=== PATIENT | male | born 1980 | race Two or more races ===

== ENCOUNTER → 2019-02-21 | Outpatient (CLI) | payer OTHER ==
--- NOTE | 2019-02-21 11:33 | PFTRPT ---
Height: 72.00 Inches Weight: 170.00 Lbs BSA: 1.99 Diagnosis: R06.02 DATE OF PROCEDURE: 02/21/2019 ORDERED BY: Mirta Deleon MD Spirometry: Study of excellent technical quality. Forced vital capacity normal. FEV1 in proportion. Obstructive index is, therefore, normal. Flow Volume Loop: Expiratory limb of the flow volume loop is normal. Lung Volumes: Total lung capacity normal. Residual volume is somewhat out of proportion, suggesting air trapping. Diffusing Capacity: Diffusing capacity is normal and remains normal when corrected for alveolar volume. Hemoglobin: No hemoglobin available for correction. Airway Mechanics: Airway resistance and conductance are normal. IMPRESSION: Cannot rule out a degree of air trapping. Please correlate clinically. MTDD
== END ==
LOC: M CARPUL 10:36
PROVIDERS: ATTEND Family Medicine
DX: R06.02 Shortness of breath (principal)